=== PATIENT | female | born 1940 | race Caucasian/White ===

== ENCOUNTER → 2017-09-14 07:26 | Outpatient (REF) | payer MEDICARE, MEDICAID, SELFPAY ==
[2017-09-14 08:40] LABS: Hematocrit 34.6 % (37-47); Mean Corp Hgb Conc 31.8 g/gl (32-36); Mean Corpuscular Hgb 30.9 pg (27.0-32.0); Mean Corpuscular Volume 97.2 fL (81-99); Platelet Count 242 K/mm3 (150-450); RBC Distribution Width CV 14.2 % (11.6-14.6); RBC Distribution Width SD 47.8 fl (35.1-43.9); Red Blood Count 3.56 M/mm3 (4.2-5.4); White Blood Count 9.7 K/mm3 (4.4-11.0)
[2017-09-14 08:46] LABS: Scan Indicated on CBC? Y/N NO
[2017-09-14 09:03] LABS: Anion Gap 7 (5-15); BUN 23 mg/dL (7-18); BUN/Creat Ratio 27.3 RATIO (10-20); Calcium,Total 8.5 mg/dL (8.5-10.1); Chloride 98 mmol/L (98-107); Creatinine, Serum 0.84 mg/dL (0.55-1.02); EST Glomerular Filtration Rate 69 mL/min (>60); Est Glom Filt Rate - Afr Amer 84 mL/min (>60); Glucose 69 mg/dL (70-110); Potassium 3.8 mmol/L (3.5-5.1); Sodium Level 140 mmol/L (136-145)
== END ==
LOC: OLS.WHLEAS 07:26
PROVIDERS: Visit Provider Family Medicine
DX: E11.9 Type 2 diabetes mellitus without complications (principal); I10 Essential (primary) hypertension; E03.9 Hypothyroidism, unspecified; J44.9 Chronic obstructive pulmonary disease, unspecified
CPT/HCPCS: 36415; 80048; 85027

== ENCOUNTER → 2017-10-26 07:00 | Outpatient (REF) | payer MEDICARE, MEDICAID, SELFPAY ==
[2017-10-26 09:14] LABS: Hematocrit 36.2 % (37-47); Hemoglobin 11.4 g/dl (12.0-15.0); Mean Corp Hgb Conc 31.5 g/gl (32-36); Mean Corpuscular Hgb 31.2 pg (27.0-32.0); Mean Corpuscular Volume 99.2 fL (81-99); Platelet Count 263 K/mm3 (150-450); RBC Distribution Width CV 14.4 % (11.6-14.6); RBC Distribution Width SD 51.9 fl (35.1-43.9); Red Blood Count 3.65 M/mm3 (4.2-5.4); Scan Indicated on CBC? Y/N NO; White Blood Count 9.5 K/mm3 (4.4-11.0)
[2017-10-26 09:23] LABS: Anion Gap 8 (5-15); BUN 22 mg/dL (7-18); BUN/Creat Ratio 24.7 RATIO (10-20); Calcium,Total 8.7 mg/dL (8.5-10.1); Chloride 98 mmol/L (98-107); Creatinine, Serum 0.89 mg/dL (0.55-1.02); EST Glomerular Filtration Rate 65 mL/min (>60); Est Glom Filt Rate - Afr Amer 79 mL/min (>60); Glucose 132 mg/dL (74-106); Potassium 3.7 mmol/L (3.5-5.1); Sodium Level 141 mmol/L (136-145)
== END ==
LOC: OLS.WHLEAS 07:00
PROVIDERS: Visit Provider Family Medicine
DX: E11.9 Type 2 diabetes mellitus without complications (principal); I10 Essential (primary) hypertension; J44.9 Chronic obstructive pulmonary disease, unspecified
CPT/HCPCS: 36415; 80048; 85027

== ENCOUNTER → 2018-01-02 05:00 | Outpatient (REF) | payer MEDICARE, MEDICAID, SELFPAY ==
[2018-01-02 08:01] LABS: Hematocrit 32.7 % (37-47); Hemoglobin 10.3 g/dl (12.0-15.0); Mean Corp Hgb Conc 31.5 g/gl (32-36); Mean Corpuscular Volume 98.5 fL (81-99); Platelet Count 204 K/mm3 (150-450); RBC Distribution Width CV 14.2 % (11.6-14.6); RBC Distribution Width SD 48.7 fl (35.1-43.9); Red Blood Count 3.32 M/mm3 (4.2-5.4); White Blood Count 9.9 K/mm3 (4.4-11.0)
[2018-01-02 08:06] LABS: Scan Indicated on CBC? Y/N NO
[2018-01-02 08:10] LABS: Anion Gap 6 (5-15); BUN 25 mg/dL (7-18); BUN/Creat Ratio 24.5 RATIO (10-20); Calcium,Total 8.3 mg/dL (8.5-10.1); Chloride 101 mmol/L (98-107); Cholesterol 136 mg/dL (200); Creatinine, Serum 1.02 mg/dL (0.55-1.02); EST Glomerular Filtration Rate 55 mL/min (>60); Est Glom Filt Rate - Afr Amer 67 mL/min (>60); Glucose 168 mg/dL (74-106); High Density Lipoprotein 54 mg/dL; Potassium 3.9 mmol/L (3.5-5.1); Sodium Level 142 mmol/L (136-145); Triglycerides 64 mg/dL; Very Low Density Lipoprotein 13 mg/dL (5-40)
== END ==
LOC: OLS.WHLEAS 05:00
PROVIDERS: Visit Provider Family Medicine
DX: E11.9 Type 2 diabetes mellitus without complications (principal); I10 Essential (primary) hypertension; E78.5 Hyperlipidemia, unspecified; J44.9 Chronic obstructive pulmonary disease, unspecified
CPT/HCPCS: 36415; 80048; 80061; 85027

== ENCOUNTER → 2018-01-23 05:00 | Outpatient (REF) | payer MEDICARE, MEDICAID, SELFPAY ==
[2018-01-23 08:33] LABS: AST(SGOT) 8 U/L (15-37); Alanine Aminotransfer ALT/SGPT 17 U/L (13-56); Albumin, Serum 3.2 g/dL (3.2-5.0); Alkaline Phosphatase 138 U/L (45-117); Anion Gap 6 (5-15); BUN 23 mg/dL (7-18); BUN/Creat Ratio 25.3 RATIO (10-20); Bilirubin, Direct 0.08 mg/dL (0.00-0.30); Calcium,Total 8.4 mg/dL (8.5-10.1); Chloride 101 mmol/L (98-107); Creatinine, Serum 0.91 mg/dL (0.55-1.02); EST Glomerular Filtration Rate 63 mL/min (>60); Est Glom Filt Rate - Afr Amer 77 mL/min (>60); Globulin 3.4 g/dL (2.2-4.2); Glucose 61 mg/dL (74-106); Potassium 3.7 mmol/L (3.5-5.1); Protein, Total 6.6 g/dL (6.4-8.2); Sodium Level 145 mmol/L (136-145)
[2018-01-23 08:50] LABS: Hemoglobin A1c 8.8 % (4.2-6.3)
== END ==
LOC: OLS.WHLEAS 05:00
PROVIDERS: Visit Provider Family Medicine
DX: R60.9 Edema, unspecified (principal)
CPT/HCPCS: 36415; 80048; 80076; 83036

== ENCOUNTER → 2018-03-01 05:00 | Outpatient (REF) | payer MEDICARE, SELFPAY ==
[2018-03-01 08:24] LABS: Hematocrit 33.9 % (37-47); Hemoglobin 10.6 g/dl (12.0-15.0); Mean Corp Hgb Conc 31.3 g/gl (32-36); Mean Corpuscular Hgb 30.5 pg (27.0-32.0); Mean Corpuscular Volume 97.4 fL (81-99); Mean Platelet Vol. 12.1 fl (6.2-12.0); Platelet Count 220 K/mm3 (150-450); RBC Distribution Width CV 14.1 % (11.6-14.6); RBC Distribution Width SD 50.3 fl (35.1-43.9); Red Blood Count 3.48 M/mm3 (4.2-5.4); White Blood Count 9.8 K/mm3 (4.4-11.0)
[2018-03-01 08:28] LABS: Scan Indicated on CBC? Y/N NO
[2018-03-01 08:29] LABS: Anion Gap 7 (5-15); BUN 24 mg/dL (7-18); BUN/Creat Ratio 25.8 RATIO (10-20); Calcium,Total 8.4 mg/dL (8.5-10.1); Chloride 101 mmol/L (98-107); Creatinine, Serum 0.93 mg/dL (0.55-1.02); EST Glomerular Filtration Rate 62 mL/min (>60); Est Glom Filt Rate - Afr Amer 75 mL/min (>60); Glucose 173 mg/dL (74-106); Potassium 3.8 mmol/L (3.5-5.1); Sodium Level 143 mmol/L (136-145)
== END ==
LOC: OLS.WHLEAS 05:00
PROVIDERS: Visit Provider Family Medicine
DX: E11.9 Type 2 diabetes mellitus without complications (principal); I10 Essential (primary) hypertension; E78.5 Hyperlipidemia, unspecified; M06.9 Rheumatoid arthritis, unspecified
CPT/HCPCS: 36415; 80048; 85027

== ENCOUNTER → 2018-04-30 05:00 | Outpatient (REF) | payer MEDICARE, SELFPAY ==
[2018-04-30 10:20] LABS: Hematocrit 33.6 % (37-47); Hemoglobin 10.7 g/dl (12.0-15.0); Mean Corp Hgb Conc 31.8 g/gl (32-36); Mean Corpuscular Hgb 31.7 pg (27.0-32.0); Mean Corpuscular Volume 99.4 fL (81-99); Mean Platelet Vol. 11.6 fl (6.2-12.0); Platelet Count 216 K/mm3 (150-450); RBC Distribution Width CV 14.2 % (11.6-14.6); RBC Distribution Width SD 49.2 fl (35.1-43.9); Red Blood Count 3.38 M/mm3 (4.2-5.4); White Blood Count 10.2 K/mm3 (4.4-11.0)
[2018-04-30 10:38] LABS: Scan Indicated on CBC? Y/N NO
[2018-04-30 11:01] LABS: Anion Gap 5 (5-15); BUN 23 mg/dL (7-18); Chloride 102 mmol/L (98-107); EST Glomerular Filtration Rate 57 mL/min (>60); Est Glom Filt Rate - Afr Amer 69 mL/min (>60); Glucose 180 mg/dL (74-106); Potassium 4.3 mmol/L (3.5-5.1); Sodium Level 141 mmol/L (136-145)
== END ==
LOC: OLS.WHLEAS 05:00
PROVIDERS: Visit Provider Family Medicine
DX: I10 Essential (primary) hypertension (principal); E11.9 Type 2 diabetes mellitus without complications; J44.9 Chronic obstructive pulmonary disease, unspecified
CPT/HCPCS: 36415; 80048; 85027

== ENCOUNTER 2018-06-27 02:20 | Emergency (ER) | payer MEDICARE, BC, MEDICAID, SELFPAY ==
[2018-06-27 02:21] VITALS: BP 149/72; PULSE 95; RESP 22; TEMP 36.7; O2SAT 92; BMI 77.4
[2018-06-27 02:24] VITALS: O2SAT 96
--- NOTE | 2018-06-27 02:58 | EKG12_ITS ---
Test Reason : SOB Blood Pressure : / mmHG Vent. Rate : 097 BPM Atrial Rate : 097 BPM P-R Int : 130 ms QRS Dur : 080 ms QT Int : 336 ms P-R-T Axes : 011 025 091 degrees QTc Int : 426 ms Normal sinus rhythm with sinus arrhythmia Nonspecific T wave abnormality Abnormal ECG Confirmed by ROXANE COHEN, NIDAI ([id number]), senior editor GEOFFREY SALGADO ([id number]) on 07/01/2018 3:45:53 PM Referred By: MR Confirmed By:NIDIA BETTS MD
--- NOTE | 2018-06-27 02:58 | RAD_ITS ---
STUDY: X-RAY CHEST REASON FOR EXAM: Female, 78 years old. Shortness of breath TECHNIQUE: 1 view COMPARISON: September 04, 2016 FINDINGS: There is a severe thoracic scoliosis with convexity to the right. There is cardiomegaly with heavy calcification of a tortuous aorta. There are chronic interstitial changes in the lungs with no acute pneumonia or failure and no pleural effusions. A right shoulder hemiarthroplasty. Normal visualized thoracic spine. Normal visualized ribs, clavicles, and shoulders. There is no demonstrated abnormality of the visualized soft tissue structures of the upper abdomen. RAD/Chest 1 View (Portable) IMPRESSION: Cardiomegaly. No acute findings in the lungs. Chronic interstitial changes bilaterally. Electronically Signed: Maurizio Maynard MD at 3:19 EDT Tel , Service support ,
[2018-06-27 03:02] VITALS: O2SAT 97
[2018-06-27 03:17] LABS: Absolute Lymphocyte Count 2.98 X10^3/ul (0.83-4.51); Absolute Neutrophil Count 5.4 X10^3/uL (2.0-7.7); Basophil# 0.01 X10^3/uL; Basophil% 0.1 % (0-1); Eosinophil# 0.13 X10^3/uL; Eosinophils% 1.4 % (0-5); Hematocrit 36.3 % (37-47); Hemoglobin 11.6 g/dl (12.0-15.0); Lymphocyte # 2.98 X10^3/ul (4.0); Lymphocyte % 31.6 % (19-41); Mean Corpuscular Hgb 30.9 pg (27.0-32.0); Mean Corpuscular Volume 96.8 fL (81-99); Mean Platelet Vol. 11.8 fl (6.2-12.0); Monocyte# 0.91 X10^3/uL; Monocyte% 9.7 % (0-10); Neutrophil # 5.37 X10^3/uL (2.7-7.7); Platelet Count 255 K/mm3 (150-450); RBC Distribution Width CV 14.8 % (11.6-14.6); Red Blood Count 3.75 M/mm3 (4.2-5.4); White Blood Count 9.4 K/mm3 (4.4-11.0)
[2018-06-27 03:21] LABS: Anion Gap 8 (5-15); BUN 25 mg/dL (7-18); BUN/Creat Ratio 22.3 RATIO (10-20); Calcium,Total 8.6 mg/dL (8.5-10.1); Chloride 98 mmol/L (98-107); Creatinine, Serum 1.12 mg/dL (0.55-1.02); EST Glomerular Filtration Rate 50 mL/min (>60); Est Glom Filt Rate - Afr Amer 60 mL/min (>60); Estimated Creatinine Clearance 31.69 ml/min; Glucose 242 mg/dL (74-106); Potassium 3.8 mmol/L (3.5-5.1); Sodium Level 140 mmol/L (136-145)
[2018-06-27 03:22] LABS: Differential Indicated SCAN CRITERIA MET; POSITIVE COUNT NO; POSITIVE DIFFERENTIAL NO; POSITIVE MORPHOLOGY YES
[2018-06-27 04:37] VITALS: BP 126/50; PULSE 89; RESP 17; O2SAT 98
--- NOTE | 2018-06-27 04:46 | ED.VISSUMM ---
- ER Visit Summary Date of Service: 06/27/18 Chief Complaint: Shortness of breath History of Present Illness: The patient is a 78 F presenting for evaluation secondary to an episode of shortness of breath. Patient reports that she suddenly became short of breath this evening. Paramedics were contacted, the patient was noted to be in the 80% range and her pulse ox. When paramedics placed the patient on her normal O2 settings, she immediately came up into the 90s and felt improvement. Patient states that this episode of shortness of breath was not associated with chest pain. It has not been associated with any sort of infectious signs or symptoms such as fever cough nausea or vomiting rash weakness or paresthesias. Patient states that she currently feels asymptomatic. She does have an underlying history of pulmonary hypertension COPD coronary disease diabetes hypertension and rheumatoid arthritis. Physical Examination: Vital signs notable for respiratory rate of 22 pulse ox 97% on 2-1/2 L. Well-nourished female no acute distress. Head normocephalic atraumatic. Moist mucous membranes. Neck supple. Heart was regular rate and rhythm, lungs sounds were clear to auscultation bilaterally with some minimal tachypnea but no respiratory distress or retractions. Abdomen soft and nontender. Peripheral edema +1 and symmetric in the lower extremities. Skin shows chronic changes consistent with patient's rheumatoid arthritis. Test Results: EKG demonstrates sinus rhythm 97 with nonspecific T wave changes that are consistent with patient's prior EKG and May 2016. Chest x-ray shows chronic changes per radiology and my personal review. CBC demonstrates some chronic anemia 11.6, chemistry unremarkable except for glucose 242, troponin found to be negative. Emergency Department Course and Treatment: Patient presented secondary to an episode of shortness of breath. She has no abnormal lung sounds, and does not appear to be in respiratory distress. A workup was obtained to check for pneumonia or cardiac etiology and was found to be negative. Patient remained asymptomatic and saturating normally. I do not believe that the patient requires admission at this time, this was not an episode of chest pain and seems like it could have potentially been that the patient was off of her oxygen or maybe it was an element of some paroxysmal nocturnal dyspnea. Regardless, I feel the patient safe and appropriate for discharge and she was sent back to the [facility] in stable condition. Disposition: Discharge Impression: 1. Dyspnea This note was generated with [employer] dictation software. It may contain incorrect words, spelling, and punctuation that were not noted in review of the chart prior to signing ED Disposition - Plan for ED Patient: Disposition: Home or Assisted Living Chief Complaint: Shortness of Breath Diagnosis: Dyspnea Instructions: ED Dyspnea Shortness of Breath Referrals: Jeremy Robles MD [Primary Care Provider] - 3-5 Days
--- NOTE | 2018-06-27 04:49 | ED.DCSUM_ITS ---
- ER Visit Summary Date of Service: 06/27/18 Chief Complaint: Shortness of breath History of Present Illness: The patient is a 78 F presenting for evaluation secondary to an episode of shortness of breath. Patient reports that she suddenly became short of breath this evening. Paramedics were contacted, the patient was noted to be in the 80% range and her pulse ox. When paramedics placed the patient on her normal O2 settings, she immediately came up into the 90s and felt improvement. Patient states that this episode of shortness of breath was not associated with chest pain. It has not been associated with any sort of infectious signs or symptoms such as fever cough nausea or vomiting rash weakness or paresthesias. Patient states that she currently feels asymptomatic. She does have an underlying history of pulmonary hypertension COPD coronary disease diabetes hypertension and rheumatoid arthritis. Physical Examination: Vital signs notable for respiratory rate of 22 pulse ox 97% on 2-1/2 L. Well-nourished female no acute distress. Head normocephalic atraumatic. Moist mucous membranes. Neck supple. Heart was regular rate and rhythm, lungs sounds were clear to auscultation bilaterally with some minimal tachypnea but no respiratory distress or retractions. Abdomen soft and nontender. Peripheral edema +1 and symmetric in the lower extremities. Skin shows chronic changes consistent with patient's rheumatoid arthritis. Test Results: EKG demonstrates sinus rhythm 97 with nonspecific T wave changes that are consistent with patient's prior EKG and May 2016. Chest x-ray shows chronic changes per radiology and my personal review. CBC demonstrates some chronic anemia 11.6, chemistry unremarkable except for glucose 242, troponin found to be negative. Emergency Department Course and Treatment: Patient presented secondary to an episode of shortness of breath. She has no abnormal lung sounds, and does not appear to be in respiratory distress. A workup was obtained to check for pne umonia or cardiac etiology and was found to be negative. Patient remained asymptomatic and saturating normally. I do not believe that the patient requires admission at this time, this was not an episode of chest pain and seems like it could have potentially been that the patient was off of her oxygen or maybe it was an element of some paroxysmal nocturnal dyspnea. Regardless, I feel the patient safe and appropriate for discharge and she was sent back to the intermediate in stable condition. Disposition: Discharge Impression: 1. Dyspnea This note was generated with [employer] 2000 dictation software. It may contain incorrect words, spelling, and punctuation that were not noted in review of the chart prior to signing ED Disposition - Plan for ED Patient: Disposition: Home or Assisted Living Chief Complaint: Shortness of Breath Diagnosis: Dyspnea Instructions: ED Dyspnea Shortness of Breath Referrals: Jeremy Robles MD [Primary Care Provider] - 3-5 Days
[2018-06-27 04:57] VITALS: BP 126/50; PULSE 90; RESP 20; O2SAT 98
[2018-06-27 11:01] LABS: Bedside Glucose 267 mg/dL (70-110)
== END 2018-06-27 05:45 | disposition home or self-care (01) ==
PROVIDERS: Emergency Provider Emergency Medicine; Family Provider Family Medicine; PCP Family Medicine
DX: R06.02 Shortness of breath (principal); I25.10 Atherosclerotic heart disease of native coronary artery without angina pectoris; I10 Essential (primary) hypertension; I27.20 Pulmonary hypertension, unspecified; E11.9 Type 2 diabetes mellitus without complications; J44.9 Chronic obstructive pulmonary disease, unspecified; M06.9 Rheumatoid arthritis, unspecified; Z79.4 Long term (current) use of insulin; Z79.01 Long term (current) use of anticoagulants; Z79.899 Other long term (current) drug therapy
CPT/HCPCS: 71045; 80048; 82962; 84484; 85025; 93005; 99285; A4216

== ENCOUNTER → 2018-07-01 04:00 | Outpatient (REF) | payer MEDICARE, BC, MEDICAID, SELFPAY ==
[2018-07-01 08:57] LABS: Hematocrit 33.6 % (37-47); Hemoglobin 10.3 g/dl (12.0-15.0); Mean Corp Hgb Conc 30.7 g/gl (32-36); Mean Corpuscular Hgb 30.5 pg (27.0-32.0); Mean Corpuscular Volume 99.4 fL (81-99); Mean Platelet Vol. 11.6 fl (6.2-12.0); Platelet Count 250 K/mm3 (150-450); RBC Distribution Width CV 14.9 % (11.6-14.6); RBC Distribution Width SD 53.4 fl (35.1-43.9); Red Blood Count 3.38 M/mm3 (4.2-5.4); White Blood Count 9.4 K/mm3 (4.4-11.0)
[2018-07-01 08:58] LABS: Scan Indicated on CBC? Y/N NO
[2018-07-01 09:10] LABS: Anion Gap 6 (5-15); BUN 32 mg/dL (7-18); BUN/Creat Ratio 27.4 RATIO (10-20); Calcium,Total 8.6 mg/dL (8.5-10.1); Chloride 103 mmol/L (98-107); Creatinine, Serum 1.17 mg/dL (0.55-1.02); EST Glomerular Filtration Rate 47 mL/min (>60); Est Glom Filt Rate - Afr Amer 57 mL/min (>60); Glucose 46 mg/dL (74-106); Potassium 4.5 mmol/L (3.5-5.1); Sodium Level 145 mmol/L (136-145)
== END ==
LOC: OLS.WHLEAS 04:00
PROVIDERS: Visit Provider Family Medicine
DX: J44.9 Chronic obstructive pulmonary disease, unspecified (principal); E11.9 Type 2 diabetes mellitus without complications; I10 Essential (primary) hypertension
CPT/HCPCS: 36415; 80048; 85027

== ENCOUNTER → 2018-07-23 05:00 | Outpatient (REF) | payer MEDICARE, BC, MEDICAID, SELFPAY ==
[2018-07-23 09:10] LABS: Hemoglobin A1c 8.9 % (4.2-6.3)
[2018-07-23 09:19] LABS: AST(SGOT) 10 U/L (15-37); Alanine Aminotransfer ALT/SGPT 16 U/L (13-56); Albumin, Serum 2.9 g/dL (3.2-5.0); Alkaline Phosphatase 129 U/L (45-117); Bilirubin, Direct 0.07 mg/dL (0.00-0.30); Globulin 3.1 g/dL (2.2-4.2)
== END ==
LOC: OLS.WHLEAS 05:00
PROVIDERS: Visit Provider Family Medicine
DX: I10 Essential (primary) hypertension (principal); F03.90 Unspecified dementia, unspecified severity, without behavioral disturbance, psychotic disturbance, mood disturbance, and anxiety; E11.9 Type 2 diabetes mellitus without complications; E78.5 Hyperlipidemia, unspecified; M62.81 Muscle weakness (generalized); G30.9 Alzheimer's disease, unspecified; F33.9 Major depressive disorder, recurrent, unspecified; M06.9 Rheumatoid arthritis, unspecified
CPT/HCPCS: 36415; 80076; 83036

== ENCOUNTER → 2018-08-20 07:45 | Outpatient (REF) | payer MEDICARE, BC, MEDICAID, SELFPAY ==
[2018-08-20 09:44] LABS: Hematocrit 33.9 % (37-47); Hemoglobin 10.6 g/dl (12.0-15.0); Mean Corp Hgb Conc 31.3 g/gl (32-36); Mean Corpuscular Hgb 31.3 pg (27.0-32.0); Mean Platelet Vol. 11.6 fl (6.2-12.0); Platelet Count 246 K/mm3 (150-450); RBC Distribution Width CV 14.7 % (11.6-14.6); RBC Distribution Width SD 51.4 fl (35.1-43.9); Red Blood Count 3.39 M/mm3 (4.2-5.4); White Blood Count 10.4 K/mm3 (4.4-11.0)
[2018-08-20 09:45] LABS: Scan Indicated on CBC? Y/N NO
[2018-08-20 09:50] LABS: Anion Gap 7 (5-15); BUN 19 mg/dL (7-18); Calcium,Total 8.8 mg/dL (8.5-10.1); Chloride 99 mmol/L (98-107); EST Glomerular Filtration Rate 57 mL/min (>60); Est Glom Filt Rate - Afr Amer 69 mL/min (>60); Glucose 70 mg/dL (74-106); Potassium 4.5 mmol/L (3.5-5.1); Sodium Level 143 mmol/L (136-145)
== END ==
LOC: OLS.WHLEAS 07:45
PROVIDERS: Visit Provider Family Medicine
DX: E11.9 Type 2 diabetes mellitus without complications (principal); F03.90 Unspecified dementia, unspecified severity, without behavioral disturbance, psychotic disturbance, mood disturbance, and anxiety; I10 Essential (primary) hypertension; E78.5 Hyperlipidemia, unspecified
CPT/HCPCS: 36415; 80048; 85027

== ENCOUNTER → 2018-10-22 05:57 | Outpatient (REF) | payer MEDICARE, BC, MEDICAID, SELFPAY ==
[2018-10-22 07:06] LABS: Hematocrit 31.4 % (37-47); Hemoglobin 9.8 g/dl (12.0-15.0); Mean Corp Hgb Conc 31.2 g/gl (32-36); Mean Corpuscular Hgb 30.5 pg (27.0-32.0); Mean Corpuscular Volume 97.8 fL (81-99); Mean Platelet Vol. 11.6 fl (6.2-12.0); Platelet Count 221 K/mm3 (150-450); RBC Distribution Width CV 14.4 % (11.6-14.6); RBC Distribution Width SD 51.3 fl (35.1-43.9); Red Blood Count 3.21 M/mm3 (4.2-5.4); White Blood Count 7.6 K/mm3 (4.4-11.0)
[2018-10-22 07:10] LABS: Scan Indicated on CBC? Y/N NO
[2018-10-22 07:11] LABS: Anion Gap 5 (5-15); BUN 25 mg/dL (7-18); BUN/Creat Ratio 22.7 RATIO (10-20); Calcium,Total 8.3 mg/dL (8.5-10.1); Chloride 100 mmol/L (98-107); EST Glomerular Filtration Rate 51 mL/min (>60); Est Glom Filt Rate - Afr Amer 61 mL/min (>60); Glucose 98 mg/dL (74-106); Potassium 3.4 mmol/L (3.5-5.1); Sodium Level 139 mmol/L (136-145)
== END ==
LOC: OLS.WHLEAS 05:57
PROVIDERS: Visit Provider Family Medicine
DX: E11.9 Type 2 diabetes mellitus without complications (principal); I10 Essential (primary) hypertension; E78.5 Hyperlipidemia, unspecified; M06.9 Rheumatoid arthritis, unspecified; F33.9 Major depressive disorder, recurrent, unspecified; G30.9 Alzheimer's disease, unspecified
CPT/HCPCS: 36415; 80048; 85027

== ENCOUNTER → 2018-11-18 04:00 | Outpatient (REF) | payer MEDICARE, BC, MEDICAID, SELFPAY ==
[2018-11-18 08:35] LABS: Hematocrit 34.6 % (37-47); Mean Corp Hgb Conc 31.8 g/gl (32-36); Mean Corpuscular Hgb 30.6 pg (27.0-32.0); Mean Corpuscular Volume 96.4 fL (81-99); Mean Platelet Vol. 11.9 fl (6.2-12.0); Platelet Count 191 K/mm3 (150-450); RBC Distribution Width SD 51.9 fl (35.1-43.9); Red Blood Count 3.59 M/mm3 (4.2-5.4); White Blood Count 6.9 K/mm3 (4.4-11.0)
[2018-11-18 08:46] LABS: Anion Gap 9 (5-15); BUN 52 mg/dL (7-18); BUN/Creat Ratio 32.1 RATIO (10-20); Calcium,Total 7.9 mg/dL (8.5-10.1); Chloride 101 mmol/L (98-107); Creatinine, Serum 1.62 mg/dL (0.55-1.02); EST Glomerular Filtration Rate 32 mL/min (>60); Est Glom Filt Rate - Afr Amer 39 mL/min (>60); Glucose 151 mg/dL (74-106); Potassium 4.4 mmol/L (3.5-5.1); Sodium Level 139 mmol/L (136-145)
[2018-11-18 08:49] LABS: Scan Indicated on CBC? Y/N NO
[2018-11-18 09:16] LABS: BNP,B-Type NATRIURETIC PEPTIDE 20.7 pg/mL (0-100)
== END ==
LOC: OLS.WHLEAS 04:00
PROVIDERS: Visit Provider Family Medicine
DX: J44.9 Chronic obstructive pulmonary disease, unspecified (principal)
CPT/HCPCS: 36415; 80048; 83880; 85027

== ENCOUNTER 2018-12-12 09:53 | Emergency (ER) | payer MEDICARE, BC, MEDICAID, SELFPAY ==
[2018-12-12 09:57] VITALS: BP 103/68; BP 106/51; PULSE 82; RESP 16; TEMP 36.8; O2SAT 96; BMI 29.2
[2018-12-12 10:21] LABS: Bedside Glucose 25 mg/dL (70-110)
[2018-12-12] MEDS: Dextrose 50%-Water 25 GM/50 ML DISP.SYRIN IV (10:22)
--- NOTE | 2018-12-12 10:40 | ED.VISSUMM ---
- ER Visit Summary Date of Service: 12/12/18 Chief Complaint: Low blood sugar History of Present Illness: The patient is a 78 F with low blood sugar at the [facility]. She was given oral glucose by [facility] as well as EMS. Last blood sugar for squad was 40. Patient was given orange juice on arrival to the ED. First blood sugar on check in the emergency room reveals a blood sugar of 25. She denies recent illness. She is on insulin for blood sugar control. Physical Examination: Vital signs unremarkable. Patient is lying in bed no acute distress. She is awake and answering questions. Heart is regular rate and rhythm. Lung sounds are clear. Abdomen is soft nontender. Test Results: CBC was white count 16.1 with 90% neutrophils. Hemoglobin is 10.0. Chemistry studies reveal glucose of 64, BUN 46, creatinine 1.73. Her renal function compares consistent with her prior. Urinalysis obtained via straight cath shows 0-5 white cells with 0-5 epithelials. Emergency Department Course and Treatment: Patient's initial blood sugar in the emergency room was 25. She was given 1 amp of D50. The next 3 blood sugars were 200, 207, and 190 over the period of an hour. One hour later blood sugars 135. She is given p.o. diet. At this time she is only tolerated a small portion of a cookie and some regular soda. Blood sugars are 113 and 117 in follow-up. Patient was given an additional dose of her normal oxycodone and respiratory viral panel was sent. I spoke with Dr. Robles. He will see her at the residential tomorrow. Toncassi's bedtime dose of insulin is to be given at only half her normal dose. Treatment Plan: [] Disposition: Discharge Impression: Hypoglycemia, improved This note was generated with [employer] dictation software. It may contain incorrect words, spelling, and punctuation that were not noted in review of the chart prior to signing ED Disposition - Plan for ED Patient: Referrals: Jeremy Robles MD [Primary Care Provider] -
[2018-12-12 10:48] LABS: Absolute Lymphocyte Count 0.76 X10^3/ul (0.83-4.51); Absolute Neutrophil Count 14.5 X10^3/uL (2.0-7.7); Eosinophil# 0.01 X10^3/uL; Eosinophils% 0.1 % (0-5); Hematocrit 31.4 % (37-47); Lymphocyte # 0.76 X10^3/ul (4.0); Lymphocyte % 4.7 % (19-41); Mean Corp Hgb Conc 31.8 g/gl (32-36); Mean Corpuscular Hgb 31.3 pg (27.0-32.0); Mean Corpuscular Volume 98.4 fL (81-99); Mean Platelet Vol. 11.2 fl (6.2-12.0); Monocyte# 0.79 X10^3/uL; Monocyte% 4.9 % (0-10); Neutrophil # 14.53 X10^3/uL (2.7-7.7); Neutrophil % 90.1 % (47-70); Platelet Count 239 K/mm3 (150-450); RBC Distribution Width CV 16.2 % (11.6-14.6); RBC Distribution Width SD 56.6 fl (35.1-43.9); Red Blood Count 3.19 M/mm3 (4.2-5.4); White Blood Count 16.1 K/mm3 (4.4-11.0)
[2018-12-12 10:49] LABS: POSITIVE COUNT NO; POSITIVE DIFFERENTIAL NO; POSITIVE MORPHOLOGY NO
[2018-12-12] MEDS: oxyCODONE CR 15 MG Tablet 30 MG PO (10:50)
[2018-12-12 10:51] LABS: Anion Gap 9 (5-15); BUN 46 mg/dL (7-18); BUN/Creat Ratio 26.6 RATIO (10-20); Calcium,Total 8.3 mg/dL (8.5-10.1); Chloride 100 mmol/L (98-107); Creatinine, Serum 1.73 mg/dL (0.55-1.02); EST Glomerular Filtration Rate 30 mL/min (>60); Est Glom Filt Rate - Afr Amer 36 mL/min (>60); Estimated Creatinine Clearance 18.63 ml/min; Glucose 64 mg/dL (74-106); Potassium 4.1 mmol/L (3.5-5.1); Sodium Level 142 mmol/L (136-145)
[2018-12-12 10:51] LABS: Bedside Glucose 200 mg/dL (70-110)
--- NOTE | 2018-12-12 11:16 | RAD_ITS ---
STUDY: X-RAY CHEST REASON FOR EXAM: Female, 78 years old. Shortness of breath. Hypoglycemia. TECHNIQUE: Single AP portable view of the chest. COMPARISON: Comparison is made with prior study dated June 27, 2018. FINDINGS: There is evidence of a mild degree of vascular congestion and mild increased markings in both lungs worse in the left lower lobe. There is blunting of both cost phrenic angles. There is moderate cardiac enlargement. Normal mediastinum and casper. Normal visualized pulmonary arteries. There is atherosclerotic calcification of the aortic arch with tortuosity. There is a dextroscoliosis of the thoracic spine. Status post right shoulder replacement. There is no demonstrated abnormality of the visualized soft tissue structures of the upper abdomen. RAD/Chest 1 View (Portable) IMPRESSION: Cardiomegaly and mild CHF with bibasilar atelectasis worse on the left side. Blunting of both costophrenic angles. Electronically Signed: Deion Wray, at 11:40 EDT , Service support ,
[2018-12-12 11:20] LABS: Bedside Glucose 207 mg/dL (70-110)
[2018-12-12 11:59] VITALS: BP 135/88; PULSE 97; RESP 25; O2SAT 96
[2018-12-12 12:06] LABS: Bedside Glucose 190 mg/dL (70-110)
[2018-12-12 13:02] LABS: Mucous, Urine 0 SEEN /hpf (<or=2+); Red Blood Cells-Urine 0 SEEN /hpf (0-5)
[2018-12-12 13:10] VITALS: BP 130/73; PULSE 94; RESP 25; O2SAT 93
[2018-12-12 13:10] LABS: Bedside Glucose 135 mg/dL (70-110)
[2018-12-12 13:21] LABS: Color, Urine Yellow (Yellow); Glucose, Dipstick Normal (Normal); Ketone-Dipstick 5 mg/dl (Negative); Leukocyte Esterase-Dipstick 25 /ul (Negative); Nitrite-Dipstick Negative (Negative); Occult Blood-Urine Negative /ul (Negative); Protein-Dipstick Negative (Negative); Specific Gravity, Urine 1.025 (1.002-1.030); Urine Bilirubin Dipstick Negative (Negative); Urine Clarity Sl. Cloudy (Clear); Urine Urobilinogen Normal (Normal)
[2018-12-12 13:35] LABS: Amorphous Sediment 2+; Bacteria 2+ /hpf (None Seen); Squamous Epithelial Cells - UA 0-5 SEEN /hpf (5-10); White Blood Cells 0-5 SEEN /hpf (0-5)
[2018-12-12 13:50] LABS: Bedside Glucose 113 mg/dL (70-110)
[2018-12-12] MEDS: oxyCODONE 5 MG Tablet PO (14:14)
[2018-12-12 14:20] LABS: Bedside Glucose 117 mg/dL (70-110)
--- NOTE | 2018-12-12 15:14 | DCINST.ED_ITS ---
ED Disposition - Plan for ED Patient: Disposition: Home or Assisted Living Instructions: ED Diabetes Hypoglycemia Insulin React Referrals: Jeremy Robles MD [Primary Care Provider] - Additional Instructions: After discussion with Dr Robles, patient is to be given only half her normal bedtime dose of insulin tonight. [facility].
[2018-12-12 15:30] LABS: Bedside Glucose 110 mg/dL (70-110)
--- NOTE | 2018-12-12 15:35 | NURSING ---
CALLED [facility], CHRISTI IS FROM [facility]
== END 2018-12-12 16:26 | disposition skilled nursing facility (03) ==
PROVIDERS: Emergency Provider Emergency Medicine; Family Provider Family Medicine; PCP Family Medicine
DX: E11.649 Type 2 diabetes mellitus with hypoglycemia without coma (principal); I10 Essential (primary) hypertension; F03.90 Unspecified dementia, unspecified severity, without behavioral disturbance, psychotic disturbance, mood disturbance, and anxiety; J44.9 Chronic obstructive pulmonary disease, unspecified; M06.9 Rheumatoid arthritis, unspecified; Z79.4 Long term (current) use of insulin; Z79.01 Long term (current) use of anticoagulants; Z79.899 Other long term (current) drug therapy; Z86.73 Personal history of transient ischemic attack (TIA), and cerebral infarction without residual deficits
CPT/HCPCS: 71045; 80048; 81001; 82962; 85025; 87633; 96374; 99285; P9612; A4216

== ENCOUNTER → 2018-12-24 05:00 | Outpatient (REF) | payer MEDICARE, BC, MEDICAID, SELFPAY ==
[2018-12-12 09:57] VITALS: BMI 29.2
[2018-12-24 07:51] LABS: Hematocrit 31.6 % (37-47); Hemoglobin 9.7 g/dl (12.0-15.0); Mean Corp Hgb Conc 30.7 g/gl (32-36); Mean Corpuscular Hgb 30.7 pg (27.0-32.0); Mean Platelet Vol. 11.6 fl (6.2-12.0); Platelet Count 232 K/mm3 (150-450); RBC Distribution Width CV 16.1 % (11.6-14.6); RBC Distribution Width SD 57.4 fl (35.1-43.9); Red Blood Count 3.16 M/mm3 (4.2-5.4); White Blood Count 10.5 K/mm3 (4.4-11.0)
[2018-12-24 08:02] LABS: Scan Indicated on CBC? Y/N NO
[2018-12-24 08:28] LABS: Anion Gap 5 (5-15); BUN 23 mg/dL (7-18); BUN/Creat Ratio 21.1 RATIO (10-20); Calcium,Total 8.1 mg/dL (8.5-10.1); Chloride 98 mmol/L (98-107); Cholesterol 134 mg/dL (200); Creatinine, Serum 1.09 mg/dL (0.55-1.02); EST Glomerular Filtration Rate 51 mL/min (>60); Est Glom Filt Rate - Afr Amer 62 mL/min (>60); Glucose 148 mg/dL (74-106); High Density Lipoprotein 48 mg/dL; Potassium 3.8 mmol/L (3.5-5.1); Sodium Level 140 mmol/L (136-145); Triglycerides 118 mg/dL; Very Low Density Lipoprotein 24 mg/dL (5-40)
== END ==
LOC: OLS.WHLEAS 05:00
PROVIDERS: Visit Provider Family Medicine
DX: I27.0 Primary pulmonary hypertension (principal); E78.5 Hyperlipidemia, unspecified
CPT/HCPCS: 36415; 80048; 80061; 85027

== ENCOUNTER → 2019-01-28 | Outpatient (REF) | payer MEDICARE, BC, MEDICAID, SELFPAY ==
[2019-01-28 08:23] LABS: AST(SGOT) 10 U/L (15-37); Alanine Aminotransfer ALT/SGPT 21 U/L (13-56); Albumin, Serum 2.8 g/dL (3.2-5.0); Alkaline Phosphatase 111 U/L (45-117); Bilirubin, Direct < 0.05 mg/dL (0.00-0.30); Globulin 3.1 g/dL (2.2-4.2); Protein, Total 5.9 g/dL (6.4-8.2)
== END | disposition home or self-care (01) ==
LOC: OLS.WHLEAS 05:00
PROVIDERS: Visit Provider Family Medicine
DX: J44.9 Chronic obstructive pulmonary disease, unspecified (principal); E11.9 Type 2 diabetes mellitus without complications; I10 Essential (primary) hypertension
CPT/HCPCS: 36415; 80076; 83036

== ENCOUNTER → 2019-02-24 | Outpatient (REF) | payer MEDICARE, OTHER, SELFPAY ==
[2019-02-24 07:54] LABS: Hematocrit 32.1 % (37-47); Hemoglobin 10.1 g/dl (12.0-15.0); Mean Corp Hgb Conc 31.5 g/gl (32-36); Mean Corpuscular Hgb 31.2 pg (27.0-32.0); Mean Corpuscular Volume 99.1 fL (81-99); Platelet Count 232 K/mm3 (150-450); Red Blood Count 3.24 M/mm3 (4.2-5.4)
[2019-02-24 07:58] LABS: Scan Indicated on CBC? Y/N NO
[2019-02-24 08:09] LABS: Hemoglobin A1c 8.5 % (4.2-6.3)
[2019-02-24 08:11] LABS: AST(SGOT) 12 U/L (15-37); Alanine Aminotransfer ALT/SGPT 13 U/L (13-56); Albumin, Serum 2.8 g/dL (3.2-5.0); Alkaline Phosphatase 117 U/L (45-117); Anion Gap 6 (5-15); BUN 21 mg/dL (7-18); BUN/Creat Ratio 21.5 RATIO (10-20); Bilirubin, Direct 0.09 mg/dL (0.00-0.30); Calcium,Total 8.5 mg/dL (8.5-10.1); Chloride 100 mmol/L (98-107); Creatinine, Serum 0.98 mg/dL (0.55-1.02); EST Glomerular Filtration Rate 58 mL/min (>60); Est Glom Filt Rate - Afr Amer 70 mL/min (>60); Globulin 3.1 g/dL (2.2-4.2); Glucose 115 mg/dL (74-106); Potassium 3.3 mmol/L (3.5-5.1); Protein, Total 5.9 g/dL (6.4-8.2); Sodium Level 141 mmol/L (136-145)
== END | disposition home or self-care (01) ==
LOC: OLS.WHLEAS 05:00
PROVIDERS: Visit Provider Family Medicine
DX: F03.90 Unspecified dementia, unspecified severity, without behavioral disturbance, psychotic disturbance, mood disturbance, and anxiety (principal); E11.9 Type 2 diabetes mellitus without complications; I10 Essential (primary) hypertension; E78.5 Hyperlipidemia, unspecified
CPT/HCPCS: 36415; 80048; 80076; 83036; 85027

== ENCOUNTER → 2019-05-26 05:00 | Outpatient (REF) | payer MEDICARE, OTHER, SELFPAY ==
[2019-05-26 07:28] LABS: Hematocrit 33.4 % (37-47); Hemoglobin 10.4 g/dL (12.0-15.0); Mean Corp Hgb Conc 31.1 g/dL (32-36); Mean Corpuscular Hgb 30.8 pg (27.0-32.0); Mean Corpuscular Volume 98.8 fL (81-99); Mean Platelet Vol. 12.8 fl (6.2-12.0); Platelet Count 227 K/mm3 (150-450); RBC Distribution Width CV 14.6 % (11.6-14.6); Red Blood Count 3.38 M/mm3 (4.2-5.4); White Blood Count 9.4 K/mm3 (4.4-11.0)
[2019-05-26 07:38] LABS: Anion Gap 6 (5-15); BUN 18 mg/dL (7-18); BUN/Creat Ratio 17.5 RATIO (10-20); Calcium,Total 8.6 mg/dL (8.5-10.1); Chloride 98 mmol/L (98-107); Creatinine, Serum 1.03 mg/dL (0.55-1.02); EST Glomerular Filtration Rate 55 mL/min (>60); Est Glom Filt Rate - Afr Amer 66 mL/min (>60); Glucose 146 mg/dL (74-106); Potassium 3.4 mmol/L (3.5-5.1); Sodium Level 142 mmol/L (136-145)
== END ==
LOC: OLS.WHLEAS 05:00
PROVIDERS: Visit Provider Family Medicine
DX: J96.10 Chronic respiratory failure, unspecified whether with hypoxia or hypercapnia (principal); J44.9 Chronic obstructive pulmonary disease, unspecified; I27.0 Primary pulmonary hypertension; E78.5 Hyperlipidemia, unspecified
CPT/HCPCS: 36415; 80048; 85027

== ENCOUNTER → 2019-05-29 05:00 | Outpatient (REF) | payer MEDICARE, BC, MEDICAID, SELFPAY ==
[2019-05-29 08:10] LABS: Potassium 3.8 mmol/L (3.5-5.1)
== END ==
LOC: OLS.WHLEAS 05:00
PROVIDERS: Visit Provider Family Medicine
DX: J96.10 Chronic respiratory failure, unspecified whether with hypoxia or hypercapnia (principal); J44.9 Chronic obstructive pulmonary disease, unspecified; I27.0 Primary pulmonary hypertension; E78.5 Hyperlipidemia, unspecified; E87.6 Hypokalemia
CPT/HCPCS: 36415; 84132

== ENCOUNTER → 2019-08-25 05:00 | Outpatient (REF) | payer MEDICARE, MEDICAID, SELFPAY ==
[2019-08-25 07:59] LABS: Hematocrit 33.2 % (37-47); Hemoglobin 10.5 g/dL (12.0-15.0); Mean Corp Hgb Conc 31.6 g/dL (32-36); Mean Corpuscular Hgb 30.7 pg (27.0-32.0); Mean Corpuscular Volume 97.1 fL (81-99); Mean Platelet Vol. 12.3 fl (6.2-12.0); Platelet Count 208 K/mm3 (150-450); RBC Distribution Width CV 13.4 % (11.6-14.6); RBC Distribution Width SD 47.4 fl (35.1-43.9); Red Blood Count 3.42 M/mm3 (4.2-5.4); White Blood Count 9.4 K/mm3 (4.4-11.0)
[2019-08-25 08:20] LABS: AST(SGOT) 9 U/L (15-37); Alanine Aminotransfer ALT/SGPT 13 U/L (13-56); Alkaline Phosphatase 192 U/L (45-117); Anion Gap 3 (5-15); BUN 22 mg/dL (7-18); BUN/Creat Ratio 19.5 RATIO (10-20); Bilirubin, Direct 0.05 mg/dL (0.00-0.30); Calcium,Total 8.3 mg/dL (8.5-10.1); Chloride 100 mmol/L (98-107); Creatinine, Serum 1.13 mg/dL (0.55-1.02); EST Glomerular Filtration Rate 49 mL/min (>60); Est Glom Filt Rate - Afr Amer 59 mL/min (>60); Globulin 3.2 g/dL (2.2-4.2); Glucose 155 mg/dL (74-106); Protein, Total 6.2 g/dL (6.4-8.2); Sodium Level 140 mmol/L (136-145)
[2019-08-25 08:40] LABS: Hemoglobin A1c 9.1 % (4.2-6.3)
== END ==
LOC: OLS.WHLEAS 05:00
PROVIDERS: Visit Provider Family Medicine
DX: J96.10 Chronic respiratory failure, unspecified whether with hypoxia or hypercapnia (principal); J44.9 Chronic obstructive pulmonary disease, unspecified; I27.0 Primary pulmonary hypertension; E78.5 Hyperlipidemia, unspecified; E11.65 Type 2 diabetes mellitus with hyperglycemia
CPT/HCPCS: 36415; 80048; 80076; 83036; 85027

== ENCOUNTER → 2019-11-24 05:00 | Outpatient (REF) | payer MEDICARE, MEDICAID, SELFPAY ==
[2019-11-24 07:56] LABS: Hematocrit 31.8 % (37-47); Mean Corp Hgb Conc 31.4 g/dL (32-36); Mean Corpuscular Hgb 31.2 pg (27.0-32.0); Mean Corpuscular Volume 99.1 fL (81-99); Mean Platelet Vol. 12.1 fl (6.2-12.0); Platelet Count 203 K/mm3 (150-450); RBC Distribution Width CV 14.1 % (11.6-14.6); RBC Distribution Width SD 50.5 fl (35.1-43.9); Red Blood Count 3.21 M/mm3 (4.2-5.4)
[2019-11-24 08:06] LABS: Anion Gap 4 (5-15); BUN 24 mg/dL (7-18); BUN/Creat Ratio 23.8 RATIO (10-20); Calcium,Total 8.5 mg/dL (8.5-10.1); Chloride 102 mmol/L (98-107); Creatinine, Serum 1.01 mg/dL (0.55-1.02); EST Glomerular Filtration Rate 56 mL/min (>60); Est Glom Filt Rate - Afr Amer 68 mL/min (>60); Glucose 81 mg/dL (74-106); Potassium 3.6 mmol/L (3.5-5.1); Sodium Level 142 mmol/L (136-145)
[2019-11-25 05:24] LABS: Cholesterol 170 mg/dL (200); High Density Lipoprotein 49 mg/dL; Triglycerides 113 mg/dL; Very Low Density Lipoprotein 23 mg/dL (5-40)
== END ==
LOC: OLS.WHLEAS 05:00
PROVIDERS: PCP Family Medicine; Visit Provider Family Medicine
DX: J96.10 Chronic respiratory failure, unspecified whether with hypoxia or hypercapnia (principal); J44.9 Chronic obstructive pulmonary disease, unspecified; I27.0 Primary pulmonary hypertension; E78.5 Hyperlipidemia, unspecified
CPT/HCPCS: 36415; 80048; 80061; 85027

== ENCOUNTER → 2020-02-23 05:00 | Outpatient (REF) | payer MEDICARE, MEDICAID, SELFPAY ==
[2020-02-23 08:49] LABS: Hematocrit 33.3 % (37-47); Hemoglobin 10.7 g/dL (12.0-15.0); Mean Corp Hgb Conc 32.1 g/dL (32-36); Mean Corpuscular Hgb 31.6 pg (27.0-32.0); Mean Corpuscular Volume 98.2 fL (81-99); Mean Platelet Vol. 12.7 fl (6.2-12.0); Platelet Count 217 K/mm3 (150-450); RBC Distribution Width CV 13.5 % (11.6-14.6); RBC Distribution Width SD 48.1 fl (35.1-43.9); Red Blood Count 3.39 M/mm3 (4.2-5.4); White Blood Count 9.3 K/mm3 (4.4-11.0)
[2020-02-23 08:59] LABS: Anion Gap 5 (5-15); BUN 35 mg/dL (7-18); BUN/Creat Ratio 28.2 RATIO (10-20); Calcium,Total 8.8 mg/dL (8.5-10.1); Chloride 101 mmol/L (98-107); Creatinine, Serum 1.24 mg/dL (0.55-1.02); EST Glomerular Filtration Rate 44 mL/min (>60); Est Glom Filt Rate - Afr Amer 53 mL/min (>60); Glucose 110 mg/dL (74-106); Potassium 3.8 mmol/L (3.5-5.1); Sodium Level 141 mmol/L (136-145)
[2020-02-23 11:12] LABS: AST(SGOT) 12 U/L (15-37); Alanine Aminotransfer ALT/SGPT 15 U/L (13-56); Albumin, Serum 3.1 g/dL (3.2-5.0); Alkaline Phosphatase 127 U/L (45-117); Bilirubin, Direct 0.14 mg/dL (0.00-0.30); Globulin 3.4 g/dL (2.2-4.2); Protein, Total 6.5 g/dL (6.4-8.2)
[2020-02-23 11:16] LABS: Hemoglobin A1c 7.1 % (3.8-5.6)
== END ==
LOC: OLS.WHLEAS 05:00
PROVIDERS: PCP Family Medicine; Visit Provider Family Medicine
DX: E11.51 Type 2 diabetes mellitus with diabetic peripheral angiopathy without gangrene (principal); J96.10 Chronic respiratory failure, unspecified whether with hypoxia or hypercapnia; J44.9 Chronic obstructive pulmonary disease, unspecified; I10 Essential (primary) hypertension; E78.5 Hyperlipidemia, unspecified
CPT/HCPCS: 36415; 80048; 80076; 83036; 85027

== ENCOUNTER 2020-08-28 11:22 | Inpatient (IN) | payer MEDICARE, MEDICAID, SELFPAY ==
[2020-08-28] VITALS (53 sets, daily range): BP systolic 36–190; BP diastolic 19–115; PULSE 77–180; RESP 10–29; TEMP 3–38.9; O2SAT 88–100; BMI 24.0; BMI 25.5; BMI 67.6
--- NOTE | 2020-08-28 11:31 | EKG12_ITS ---
Test Reason : REPEAT Blood Pressure : / mmHG Vent. Rate : 177 BPM Atrial Rate : 133 BPM P-R Int : 000 ms QRS Dur : 068 ms QT Int : 276 ms P-R-T Axes : 000 053 087 degrees QTc Int : 473 ms Atrial Fibrillation with RVR Confirmed by MADINA COHEN, ELAN ([id number]), general expeditor CAROLYN DIAZ ([id number]) on 09/01/2020 9:29:43 AM Referred By: MEL Confirmed By:ELAN PAINTER MD
[2020-08-28] MEDS: Etomidate 20 MG/10 ML Vial IV (11:39)
[2020-08-28] MEDS: Succinylcholine Chloride 200 MG/10 ML Vial 70 MG IV (11:39)
[2020-08-28 11:51] LABS: Absolute Lymphocyte Count 0.97 X10^3/uL (0.83-4.51); Absolute Neutrophil Count 9.9 X10^3/uL (2.0-7.7); Basophil# 0.04 X10^3/uL; Basophil% 0.3 % (0-1); Eosinophil# 0.01 X10^3/uL; Eosinophils% 0.1 % (0-5); Hematocrit 42.6 % (37-47); Lymphocyte # 0.97 X10^3/ul (4.0); Lymphocyte % 8.4 % (19-41); Mean Corp Hgb Conc 30.5 g/dL (32-36); Mean Corpuscular Hgb 31.3 pg (27.0-32.0); Mean Corpuscular Volume 102.4 fL (81-99); Mean Platelet Vol. 11.4 fl (6.2-12.0); Monocyte# 0.51 X10^3/uL; Monocyte% 4.4 % (0-10); NRBC Flagged by Analyzer 0 % (0-5); Neutrophil # 9.85 X10^3/uL (2.7-7.7); Neutrophil % 85.8 % (47-70); Platelet Count 404 K/mm3 (150-450); RBC Distribution Width CV 14.2 % (11.6-14.6); RBC Distribution Width SD 53.5 fl (35.1-43.9); Red Blood Count 4.16 M/mm3 (4.2-5.4); White Blood Count 11.5 K/mm3 (4.4-11.0)
[2020-08-28 12:00] LABS: Fibrinogen 688 mg/dl (203-444)
[2020-08-28] MEDS: Midazolam 5 MG/ML Syringe IV (12:12)
--- NOTE | 2020-08-28 12:15 | RAD_ITS ---
STUDY: X-RAY CHEST REASON FOR EXAM: Female, 80 years old. ET TUBE PLACEMENT TECHNIQUE: Single AP portable view of the chest. COMPARISON: 12/12/2018 FINDINGS: Interval placement of endotracheal tube with the tip approximately 3 cm above the keshia. Interval placement of nasogastric tube with the tip below the diaphragm. Interval placement of right internal jugular deep venous line with tip the catheter overlying the superior vena cava and no pneumothorax. There is hyperinflation of the lungs consistent with chronic obstructive lung disease (COPD). Focal alveolar opacity in mid left lung consistent with pneumonia. There is no demonstrated pleural abnormality. Normal size heart. Normal mediastinum and casper. Normal visualized pulmonary arteries. Normal visualized aortic arch and descending thoracic aorta. There is a dextroscoliosis of the thoracic spine. Status post right shoulder hemiarthroplasty. There is no demonstrated abnormality of the visualized soft tissue structures of the upper abdomen. RAD/Chest 1 View (Portable) IMPRESSION: 1. Interval placement of endotracheal tube with the tip approximately 3 cm above the keshia. 2. Interval placement of nasogastric tube with the tip below the diaphragm. 3. Interval placement of right internal jugular deep venous line with tip of the catheter overlying the superior vena cava and no pneumothorax. 4. Emphysema with left lung pneumonia. Electronically Signed: Flash Dominguez MD at 12:51 EST Tel , Service support ,
--- NOTE | 2020-08-28 12:15 | RAD_ITS ---
STUDY: X-RAY - ABDOMEN/PELVIS REASON FOR EXAM: Female, 80 years old. og placement TECHNIQUE: Single AP view of the abdomen / pelvis. COMPARISON: None. FINDINGS: Nasogastric tube with the tip in the middle the upper abdomen likely in the stomach. There is an unremarkable bowel gas pattern. The visualized liver, spleen and kidneys are grossly normal in size and morphology. Normal soft tissue structures. Normal visualized osseous structures. RAD/Abdomen Single View (Portable) IMPRESSION: Nasogastric tube in the upper abdomen likely in the stomach. Electronically Signed: Flash Dominguez MD at 12:51 EST Tel , Service support ,
[2020-08-28] MEDS: 0.9% Normal Saline 1,000 ML 999 ML IV ×2 (12:32→13:42)
[2020-08-28] MEDS: Acetaminophen 650 MG Suppository RECTAL (12:40)
[2020-08-28 12:46] LABS: Lactic Acid 1.6 mmol/L (0.4-1.9)
[2020-08-28 12:51] LABS: ALB/GLOB Ratio 0.6 RATIO (0.9-2.4); AST(SGOT) 24 U/L (15-37); Alanine Aminotransfer ALT/SGPT 19 U/L (13-56); Albumin, Serum 2.4 g/dL (3.2-5.0); Alkaline Phosphatase 84 U/L (45-117); Anion Gap 2 (5-15); BUN 78 mg/dL (7-18); BUN/Creat Ratio 33.9 RATIO (10-20); CPK Total, Creatine Kinase 125 U/L (26-192); Calcium,Total 8.6 mg/dL (8.5-10.1); Chloride 105 mmol/L (98-107); EST Glomerular Filtration Rate 22 mL/min (>60); Est Glom Filt Rate - Afr Amer 26 mL/min (>60); Estimated Creatinine Clearance 17.65 ml/min; Globulin 4.3 g/dL (2.2-4.2); Glucose 187 mg/dL (74-106); LDH 302 U/L (84-246); Potassium 6.8 mmol/L (3.5-5.1); Protein, Total 6.7 g/dL (6.4-8.2); Sodium Level 143 mmol/L (136-145)
[2020-08-28] MEDS: Propofol 10MG/Ml 1,000 MG/100 ML Bottle 4.1 MG CONT INF (12:53)
--- NOTE | 2020-08-28 13:07 | ED.DCSUM_ITS ---
History of Present Illness Chief Complaint: Shortness of Breath Informant: Family, Communications Department Chairperson, SN[facility] Narrative: 80-year-old female from [place] presents with respiratory failure. Patient recently tested positive for Covid 19. group home report was that the patient was now requiring supplemental oxygen. Upon arrival to the emergency department the patient is in respiratory failure with agonal respirations. Is reported to me that she has a history of rheumatoid arthritis and mild dementia. Reportedly she is on methotrexate and until yesterday on prednisone. Daughter states that they changed her from prednisone to another steroids that she has not sure of Toni Ramirez DO, MS, FACEP. She also has a history of diabetes. She has also carries a history of COPD - Past Medical History (1) Pulmonary HTN Status: Chronic (2) Osteoporosis Status: Chronic (3) Type II diabetes mellitus, uncontrolled Status: Chronic (4) CAD (coronary artery disease) Status: Chronic (5) Chronic pain syndrome Status: Chronic (6) Chronic respiratory failure Status: Chronic (7) Diastolic dysfunction Status: Chronic (8) Left ventricular hypertrophy Status: Chronic (9) COPD (chronic obstructive pulmonary disease) Status: Chronic (10) Transient cerebral ischemia Status: Chronic (11) Rheumatoid arthritis Status: Chronic (12) Benign essential HTN Status: Chronic Past Medical History - Allergies and Home Meds Allergies/Adverse Reactions: Allergies aspirin Allergy (Verified 10/10/15 20:45) Hives Penicillins Allergy (Verified 10/10/15 20:45) Hives Sulfa (Sulfonamide Antibiotics) Allergy (Verified 10/10/15 20:45) Hives Prior records reviewed: Yes Surgical History: noncontributory Lives: [facility] Smoking Status: Unknown if ever smoked Drugs: None - Family History Maternal Family History: Reports: No pertinent history Paternal Family History: Reports: No pertinent history Review of Systems ROS: Unable to Obtain Physical Exam Vital Signs/Narrative: Vital Signs Temp Pulse Resp BP Pulse Ox 08/28/20 12:58 98.5 F 08/28/20 12:47 99.8 F H 82 12 145/80 H 100 08/28/20 12:42 100.5 F H 79 12 58/38 L 100 08/28/20 12:36 100.2 F H 89 12 48/26 L 08/28/20 12:28 100.4 F H 81 12 71/43 L 95 08/28/20 12:00 97.8 F 83 15 114/50 L 08/28/20 11:55 125 H 100 08/28/20 11:42 119 H 16 100 08/28/20 11:29 97.4 F L 101 H 10 L 153/63 H 100 08/28/20 11:22 97.4 F L 101 H 10 L 153/63 H 100 Inital Vital Signs reviewed: Yes General: Well nourished, Well developed, Obese Head: Normocephalic, Atraumatic Eyes: Perrl - Pupils 3 mm to 2 mm bilaterally. Negative for: Pale conjunctiva ENT: Moist mucous membranes, No rhinorrhea, - - Patient is not clearing her oral secretions. Neck: Supple, Nontender Cardiovascular: Regular rate, No murmurs, Tachycardia Respiratory: Chest nontender, Rhonchi, - - Agonal respirations Abdomen: Soft, Nondistended, Normal bowel sounds Extremities: Nontender, No edema Skin: Normal color, No rash Neurological: - - Patient's eyes are open but she is not communicating or following directions. Diagnostic/Tx/Re-eval Clinical Impression(s) from Imaging Studies Chest X-Ray 08/28/20 12:15 IMPRESSION: 1. Interval placement of endotracheal tube with the tip approximately 3 cm above the keshia. 2. Interval placement of nasogastric tube with the tip below the diaphragm. 3. Interval placement of right internal jugular deep venous line with tip of the catheter overlying the superior vena cava and no pneumothorax. 4. Emphysema with left lung pneumonia. Electronically Signed: Flash Dominguez MD at 12:51 EST Tel , Service support , KUB X-Ray 08/28/20 12:15 IMPRESSION: Nasogastric tube in the upper abdomen likely in the stomach. Electronically Signed: Flash Dominguez MD at 12:51 EST Tel , Service support , Laboratory Last Values WBC 11.5 K/mm3 (4.4-11.0) H 08/28/20 11:37 RBC 4.16 M/mm3 (4.2-5.4) L 08/28/20 11:37 Hgb 13.0 g/dL (12.0-15.0) 08/28/20 11:37 Hct 42.6 % (37-47) 08/28/20 11:37 MCV 102.4 fL (81-99) H 08/28/20 11:37 MCH 31.3 pg (27.0-32.0) 08/28/20 11:37 MCHC 30.5 g/dL (32-36) L 08/28/20 11:37 RDW Std Deviation 53.5 fl (35.1-43.9) H 08/28/20 11:37 RDW Coeff of Nayana 14.2 % (11.6-14.6) 08/28/20 11:37 Plt Count 404 K/mm3 (150-450) 08/28/20 11:37 MPV 11.4 fl (6.2-12.0) 08/28/20 11:37 Immature Gran % (Auto) 1.000 % (0.0-0.9) H 08/28/20 11:37 Neut % (Auto) 85.8 % (47-70) H 08/28/20 11:37 Lymph % (Auto) 8.4 % (19-41) L 08/28/20 11:37 Martin % (Auto) 4.4 % (0-10) 08/28/20 11:37 Eos % (Auto) 0.1 % (0-5) 08/28/20 11:37 Baso % (Auto) 0.3 % (0-1) 08/28/20 11:37 Absolute Neuts (auto) 9.9 X10^3/uL (2.0-7.7) H 08/28/20 11:37 Absolute Lymphs (auto) 0.97 X10^3/uL (0.83-4.51) 08/28/20 11:37 Nucleated RBC % 0 % (0-5) 08/28/20 11:37 Fibrinogen 688 mg/dl (203-444) H 08/28/20 11:37 Sodium 143 mmol/L (136-145) 08/28/20 12:05 Potassium 6.8 mmol/L (3.5-5.1) H* 08/28/20 12:05 Chloride 105 mmol/L (98-107) 08/28/20 12:05 Carbon Dioxide 36.0 mmol/L (21.0-32.0) H 08/28/20 12:05 Anion Gap 2 (5-15) L 08/28/20 12:05 BUN 78 mg/dL (7-18) H 08/28/20 12:05 Creatinine 2.30 mg/dL (0.55-1.02) H 08/28/20 12:05 Estim Creat Clear Calc 17.65 ml/min 08/28/20 12:05 Est GFR (MDRD) Af Amer 26 mL/min (>60) L 08/28/20 12:05 Est GFR (MDRD) Non-Af 22 mL/min (>60) L 08/28/20 12:05 BUN/Creatinine Ratio 33.9 RATIO (10-20) H 08/28/20 12:05 Glucose 187 mg/dL (74-106) H 08/28/20 12:05 Lactic Acid 1.6 mmol/L (0.4-1.9) 08/28/20 12:05 Calcium 8.6 mg/dL (8.5-10.1) 08/28/20 12:05 Total Bilirubin 0.30 mg/dL (0.20-1.00) 08/28/20 12:05 AST 24 U/L (15-37) 08/28/20 12:05 ALT 19 U/L (13-56) 08/28/20 12:05 Alkaline Phosphatase 84 U/L (45-117) 08/28/20 12:05 Lactate Dehydrogenase 302 U/L (84-246) H 08/28/20 12:05 Total Creatine Kinase 125 U/L (26-192) 08/28/20 12:05 Troponin I 0.185 ng/mL (<0.045) H 08/28/20 12:05 C-React Prot Ext Range 163.00 mg/L (0.0-3.0) H 08/28/20 12:05 B-Natriuretic Peptide Cancelled 08/28/20 11:37 Total Protein 6.7 g/dL (6.4-8.2) 08/28/20 12:05 Albumin 2.4 g/dL (3.2-5.0) L 08/28/20 12:05 Globulin 4.3 g/dL (2.2-4.2) H 08/28/20 12:05 Albumin/Globulin Ratio 0.6 RATIO (0.9-2.4) L 08/28/20 12:05 Procalcitonin Cancelled 08/28/20 11:37 - EKG Initial EKG Interpretation: Sinus Rhythm - EKG demonstrates a normal sinus rhythm at a rate of 99. There are no features of ACS or ectopy. Noted elevated T waves. - Medical Decision Making After initial evaluation of the patient and while staff were preparing for resuscitation , I called the daughter. She states that the patient is a full code. And wants everything done. Patient had EKG performed during this conversation that showed a normal sinus rhythm at a rate of 99. The patient T waves appear elevated compared to prior. Patient underwent RSI and 8-0 endotracheal tube was placed without any difficulty. Secured at 22 cm. Placement confirmed with capnography, auscultation, and later chest radiograph. The patient's blood pressure was in the 50 systolic range. Nurses were having a difficult time getting adequate venous access. Therefore decision to place a right IJ was made. Patient was prepped and draped in the usual sterile manner. Her neck shows limited mobility. Ultrasound was used to visualize the internal jugular. The nurses were unable to feel a pulse. Patient had a few seconds of CPR perfor med until I could get the ultrasound on to visualize the heart. Areas cardiac motion. I think the patient's blood pressure was substantially low that they could not feel a pulse. I then proceeded to the begin the central line placement. The first attempt at placement of the line I was unable to pass the guidewire most likely due to the angle of the needle due to the neck mobility. The needle was removed and the patient was readjusted. Second attempt I was able to feed the guidewire using the modified Seldinger technique the rest of the placement was performed successfully. Dark red nonpulsatile blood was obtained. Lines were flushed and the central line was secured with suture. Orogastric tube was placed. My interpretation of the plain films shows adequate placement of the tracheal and orogastric tubes as well as the central line. Concern for left infiltrate. Patient was given Versed for sedation and later placed on a propofol drip. She required Levophed for pressure support. I spoke with our grease cup filler and we are going to place her on a heparin drip. The procalcitonin machine was down later came back up this shows an elevated level. Due to the high probability of aspiration I gave her Levaquin and Flagyl due to her allergies. The patient will be mated into the ICU. While waiting bed assignment and transfer to the ICU the patient went into atrial fibrillation. This appears to be a new diagnosis for her. An EKG was obtained. This demonstrated atrial fibrillation at a rate of 177. Patient received a dose of Cardizem. We will see how she does and make a determination of a Cardizem drip versus amiodarone at that point. Hospitalist was updated. - Critical Care Time Critical care time (excluding procedures): 30-74 minutes - 35 minutes ED Disposition - Plan for ED Patient: Disposition: Acute Care Hospital [facility] Diagnosis: COVID-19, Respiratory failure, Hyperkalemia, Septic shock, Elevated troponin, New onset atrial fibrillation
--- NOTE | 2020-08-28 13:10 | ED.RN ---
per dr gibson, stop levophed.
--- NOTE | 2020-08-28 13:16 | ED.RN ---
levophed restarted, provider aware.
[2020-08-28 13:18] LABS: BNP,B-Type NATRIURETIC PEPTIDE 73.2 pg/mL (0-100)
[2020-08-28 13:20] LABS: Allen Test Positive; Base Excess 7 mmol/L (-2 to +2); Bicarbonate 31.7 mmol/L (22-26); Blood Gas Specimen Type ART; FI02 75; Mode AC; O2 Delivery Device Adult Vent; PEEP 5; PO2 248 mmHG (75-100); RR 12; SITE R Brach; SO2 100 % (95-99); Total Carbon Dioxide 33 mmol/L; Vt 450; pCO2 50.3 mmHg (35-45); pH 7.41 (7.35-7.45)
[2020-08-28] MEDS: Albuterol 2.5 MG/3 ML VIAL.NEB. INHALATION (13:25)
[2020-08-28 13:27] LABS: Procalcitonin 0.25 ng/mL (0.00-0.09)
[2020-08-28] MEDS: 0.9% Normal Saline 1,000 ML 200 ML IV (13:30)
[2020-08-28] MEDS: Heparin Injection (Vial) 5,000 UNIT/ML VIAL 4500 UNIT IV (13:33)
[2020-08-28] MEDS: HEPARIN/D5w 25,000 UNITS 25,000 UNITS/250 ML IV.SOLN. 10 UNITS IV (13:38)
[2020-08-28 13:39] LABS: Partial Thromboplast Time 30.7 Seconds (24.1-36.2)
[2020-08-28] MEDS: Calcium Chloride 1 GM/10 ML Syringe IV ×2 (13:46→18:46)
[2020-08-28] MEDS: levoFLOXacin IV 500 MG/100 ML BAG 100 MG IV (13:50)
[2020-08-28] MEDS: metroNIDAZOLE 500 MG/100 ML BAG 100 MG IV (13:52)
[2020-08-28] MEDS: Sodium Polystyrene Sulfonate 15 GM/60 ML UDC 30 GM PO (13:57)
[2020-08-28] MEDS: dilTIAZem 25 MG/5 ML Vial 10 MG IV BOLUS (14:35)
[2020-08-28] MEDS: Chlorhexidine 15 ML PO (16:00)
--- NOTE | 2020-08-28 16:09 | HP.PCM_ITS ---
History of Present Illness Date of Admission: 08/28/20 Chief Complaint: Shortness of breath The patient is a 80 year old F with a PMH as below who presents to the hospital from snf with respiratory failure. By the time of my evaluation she was already intubated and sedated therefore the history was obtained from chart review. Per the snf report she had tested positive for Covid recently, about a week. She had some shortness of breath and neck issues transferring the hospital. She was intubated down in the ER due to her respirations, she was brought in by EMS and was 100% on nonrebreather at 15 L/min. Prior to her transfer upstairs to the ICU from the ER she also developed A. fib with RVR and was given a dose of Cardizem in the ED however because of hypotension she also to be started on Levophed. After the intubation but prior to the insertion of the central line a CODE BLUE was called and she was felt to be in PEA so compressions were initiated and after a round of CPR the ED physician performed an ultrasound of the heart which did demonstrate contractility therefore he continued to place a central line. She was also found to be hyperkalemic to 6.8 and she was given medications for this by the ED physician. She was found to have acute renal failure with a creatinine of 2.3 and a baseline of around 1.2. She was transferred to the ICU in guarded condition. Past Medical History Past Medical History (Chronic Problems): Chronic Problems Pulmonary HTN (Chronic) Osteoporosis (Chronic) Type II diabetes mellitus, uncontrolled (Chronic) CAD (coronary artery disease) (Chronic) Chronic pain syndrome (Chronic) Coronary atherosclerosis of viejas coronary artery (Chronic) Chronic respiratory failure (Chronic) Diastolic dysfunction (Chronic) Left ventricular hypertrophy (Chronic) Left atrial enlargement (Chronic) Risk for falls (Chronic) Chronic obstructive asthma with acute exacerbation (Chronic) Left shoulder pain (Chronic) Lethargy (Chronic) Type 2 diabetes mellitus (Chronic) COPD (chronic obstructive pulmonary disease) (Chronic) Transient cerebral ischemia (Chronic) Rheumatoid arthritis (Chronic) Benign essential HTN (Chronic) Allergies aspirin Allergy (Verified 10/10/15 20:45) Hives Penicillins Allergy (Verified 10/10/15 20:45) Hives Sulfa (Sulfonamide Antibiotics) Allergy (Verified 10/10/15 20:45) Hives Home Medications: Ambulatory Orders Medication Instructions Recorded Acetaminophen [Tylenol] 650 mg PO Q4H PRN PRN 06/05/16 Albuterol Aerosols [Ventolin 2.5 mg INHALATION Q4H PRN PRN 06/05/16 Aerosols] Carbamide Peroxide [Ear Wax 3 drop OT QHS PRN 06/05/16 Removal] Clopidogrel Bisulfate [Plavix] 75 mg PO DAILY 06/05/16 Duloxetine HCl 60 mg PO DAILY 06/05/16 Furosemide [Lasix] 40 mg PO BID 06/05/16 Hydroxychloroquine [Plaquenil] 200 mg PO DAILYCM 06/05/16 Insulin Aspart [Novolog Flexpen] 0 units SC BID 06/05/16 Insulin Detemir [Levemir FlexPen] 25 units SC QHS 06/05/16 Ipratropium/Albuterol Sulfate 3 ml INHALATION TID 06/05/16 [Duoneb] Lisinopril [Zestril] 40 mg PO DAILY 06/05/16 Memantine HCl [Namenda] 10 mg PO BID 06/05/16 Methotrexate 12.5 mg PO WE 06/05/16 Omeprazole [Prilosec] 20 mg PO DAILY 06/05/16 Senexon-S 1 tab PO BID 06/05/16 predniSONE tablet 10 mg PO DAILY 06/05/16 Oxycodone HCl [Oxycontin] 30 mg PO BID #14 tab.er.12h 06/09/16 Oxycodone [Oxyir] 5 mg PO Q4H PRN PRN #20 tablet 06/09/16 Insulin Aspart [Novolog Flexpen 10 units SC BID 06/27/18 ([facility])] Potassium Chloride 20 meq PO DAILY 06/27/18 Atorvastatin Calcium 10 mg PO DAILY 12/12/18 Folic Acid 1 mg PO DAILY 12/12/18 Guaifenesin [Mucinex] 600 mg PO BID 12/12/18 Melatonin 1 mg PO QHS 12/12/18 Oseltamivir Phosphate [Tamiflu] 75 mg PO DAILY 12/12/18 Methadone HCl [Dolophine] 2.5 mg PO BID 08/28/20 Pantoprazole Sodium [Protonix] 20 mg PO DAILY 08/28/20 busPIRone [Buspar] 10 mg PO DAILY 08/28/20 Surgical History: noncontributory Psychiatric History: - - Alzheimer's dementia CATERING ADMINISTRATIVE ASSISTANT History: No pertinent CATERING ADMINISTRATIVE ASSISTANT history Lives: Skilled Nursing Smoking Status: Unknown if ever smoked Drugs: None - *Family History Maternal History Items: No pertinent history Paternal History Items: No pertinent history Review of Systems Unable to obtain accurate/complete ROS d/t: Intubation and sedation VTE Information - Inpt Only VTE Present on Admission: No Patient Problems: Active and Suspected Problems COVID-19 (Acute) Respiratory failure (Acute) Hyperkalemia (Acute) Septic shock (Acute) Elevated troponin (Acute) New onset atrial fibrillation (Acute) - Physical Exam Vitals/I&O's: Vital Signs Temp Pulse Resp BP Pulse Ox 99 F 151 H 12 67/51 L 100 08/28/20 14:51 08/28/20 14:51 08/28/20 14:51 08/28/20 14:51 08/28/20 14:20 Oxygen Flow Rate (L/min) 50 Oxygen Delivery Method Mechanical Ventilator Weight: 149 lb 0.52 oz Body Mass Index (BMI) 24.0 Finger Stick Blood Glucose 110 Intake and Output for Last 24 Hours 08/26/20 08/27/20 08/28/20 23:59 23:59 23:59 Intake Total 1026.64 / 1026.64 Balance 1026.64 / 1026.64 General: - - Intubated and sedated HEENT: Atraumatic, PERRLA, Normocephalic Oral: Dry Mucosa Neck: Supple, No JVD Lungs: Normal air movement, Diminished, Rhonchi Cardiovascular: Normal S1, Normal S2, No murmurs, Irregular Rate Abdomen: Soft, Non-Distended, No Hepato-splenomegaly Extremities: No edema, Capillary Refill Less than 3 Seconds Skin: No rashes, No breakdown Neurological: - - Intubated and sedated Psych/Mental Status: - - Intubated and sedated Microbiology Past 72 Hours 08/28/20 12:41 Mucosa - Nose SARS-CoV-2 Antigen (Rapid) - Final SARS-CoV-2 (COVID 19) Laboratory Results 08/28/20 11:37: Fibrinogen 688 H 08/28/20 11:37: B-Natriuretic Peptide Cancelled 08/28/20 11:37: Procalcitonin Cancelled 08/28/20 11:37: WBC 11.5 H, RBC 4.16 L, Hgb 13.0, Hct 42.6, MCV 102.4 H, MCH 31.3, MCHC 30.5 L, RDW Std Deviation 53.5 H, RDW Coeff of Nayana 14.2, Plt Count 404, MPV 11.4, Immature Gran % (Auto) 1.000 H, Neut % (Auto) 85.8 H, Lymph % (Auto) 8.4 L, Laporte % (Auto) 4.4, Eos % (Auto) 0.1, Baso % (Auto) 0.3, Absolute Neuts (auto) 9.9 H, Absolute Lymphs (auto) 0.97, Nucleated RBC % 0 08/28/20 11:37: APTT 30.7 08/28/20 12:05: Lactic Acid 1.6 08/28/20 12:05: Procalcitonin 0.25 H 08/28/20 12:05: B-Natriuretic Peptide 73.2 08/28/20 12:05: Sodium 143, Potassium 6.8 H*, Chloride 105, Carbon Dioxide 36.0 H, Anion Gap 2 L, BUN 78 H, Creatinine 2.30 H, Estim Creat Clear Calc 17.65, Est GFR (MDRD) Af Amer 26 L, Est GFR (MDRD) Non-Af 22 L, BUN/Creatinine Ratio 33.9 H, Glucose 187 H, Calcium 8.6, Total Bilirubin 0.30, AST 24, ALT 19, Alkaline Phosphatase 84, Lactate Dehydrogenase 302 H, Total Creatine Kinase 125, Troponin I 0.185 H, C-React Prot Ext Range 163.00 H, Total Protein 6.7, Albumin 2.4 L, Globulin 4.3 H, Albumin/Globulin Ratio 0.6 L 08/28/20 13:13: Specimen Type ART, Sample Site R Brach, pH 7.41, Bicarbonate Actual 31.7 H, Total CO2 33, Base Excess 7 H, O2 Saturation 100 H, O2 % 75, ABG pCO2 50.3 H, ABG pO2 248 H, Juan Test Positive, Respiration Rate 12, O2 Delivery Device Adult Vent, Vent Mode AC, Tidal Volume 450, POC PEEP 5 Current Medications Acetaminophen (Acetaminophen 650 Mg Suppository) 650 mg RECTAL Q4H PRN PRN PRN Reason: Pain Score 1-10/Temp > 100.7 F Chlorhexidine Gluconate (Chlorhexidine 15 Ml) 15 ml PO BID RACHELLE Famotidine (Famotidine 20 Mg Tablet) 20 mg GT BID RACHELLE Heparin Sodium (Porcine) (Heparin Injection (Vial) 5,000 Unit/Ml Vial) 0 unit IV UD PRN; Protocol PRN Reason: dose adjustment Propofol (Diprivan) 1,000 mg in 100 mls @ 4.056 mls/hr CONT INF .Q12H RACHELLE; Protocol Last Admin: 08/28/20 12:53 Dose: 10 mcg/kg/min, 4.1 mls/hr Documented by: Heparin Sodium/Dextrose () 25,000 units in 250 mls @ 10 mls/hr IV .Q25H RACHELLE; Protocol Last Admin: 08/28/20 13:38 Dose: 1,000 units/hr, 10 mls/hr Documented by: Sodium Chloride () 1,000 mls @ 100 mls/hr IV .Q10H RACHELLE Fentanyl Citrate 1,000 mcg/ (Sodium Chloride) 100 mls @ 2.5 mls/hr CONT INF .Q40H RACHELLE; Protocol Norepinephrine Bitartrate 8 mg (/ Sodium Chloride) 250 mls @ 9.375 mls/hr CONT INF .[id number] RACHELLE; Protocol Amiodarone HCl 360 mg/ (Dextrose) 200 mls @ 33.333 mls/hr CONT INF .Q6H RACHELLE Stop: 08/28/20 21:59 Amiodarone HCl 360 mg/ (Dextrose) 200 mls @ 16.667 mls/hr CONT INF .Q12H RACHELLE Stop: 08/29/20 15:59 Assessment/Plan All Active Problems COVID-19 (Acute) Respiratory failure (Acute) Hyperkalemia (Acute) Septic shock (Acute) Elevated troponin (Acute) New onset atrial fibrillation (Acute) Hyponatremia (Acute) Sepsis (Acute) Dehydration (Acute) Cystitis (Acute) Acute kidney injury (Acute) Mental status change (Acute) Hypoglycemia (Acute) 1. Acute hypoxic respiratory failure secondary to COVID-19 pneumonia/COPD/chronic respiratory failure/hyperkalemia/acute renal failure -She was diagnosed at the snf with Covid about a week ago per the family -She is progressively gotten more short of breath -She was intubated in the ED to protect her airway -Can proceed with Decadron and remdesivir and can discuss the case with ID or ICU about convalescent plasma given her significant illness -Can continue with mariluz hector -She was given Kayexalate, calcium gluconate, in the ED to treat her hyperkalemia. Will monitor -Baseline creatinine is around 1.2, her creatinine today on admission was 2.3. We will provide her IV fluids and continue to monitor 2. A. fib with RVR/chronic diastolic CHF/HTN/HLD/pulmonary hypertension/coronary artery disease/cardiac arrest status post successful resuscitation -She was given 10 mg of Cardizem in the ED, and this dropped her pressure so she was also started on Levophed, will continue on admission -Despite her diastolic dysfunction, will provide her with some fluid given her hypotension -We will likely need to discontinue Cardizem and place her on amiodarone -Her last echo was in 2014 in our system with an EF of 65% and an RVSP of 30 mmHg. She has stage I diastolic dysfunction at that time -Can continue with aspirin, Plavix, Lipitor but will hold her Lasix 3. IDDM 2 -Can continue with her home insulin regimen -Accu-Cheks AC at bedtime 4. Depression/anxiety/dementia -Continue with her home BuSpar, Cymbalta, Namenda -Family felt that her mental health be stable 5. GERD -Stable -Continue PPI 6. RA/chronic pain -Stable -We will hold her methotrexate while admitted, could continue with her Plaquenil -Since she will be on a fentanyl drip while intubated, will also discontinue her OxyContin, oxycodone, and methadone DVT: Heparin Inpatient E&M: 65211 Init Hosp L3
[2020-08-28] MEDS: 0.9% Normal Saline 1,000 ML 100 ML IV (16:13)
[2020-08-28] MEDS: Amiodarone 360 MG in Dextrose 5% Viaflo Bag 192.8 ML 33.3 MG CONT INF (17:45)
[2020-08-28] MEDS: Adenosine 6 MG/2 ML Syringe 12 MG IV (18:00)
[2020-08-28] MEDS: Etomidate 20 MG/10 ML Vial 6 MG IV (18:13)
[2020-08-28] MEDS: Dextrose 50%-Water 25 GM/50 ML DISP.SYRIN IV (18:44)
[2020-08-28] MEDS: Insulin Lispro 100 UNIT/ML INSULN.PEN 10 UNIT SC (18:45)
[2020-08-28] MEDS: Sodium Bicarbonate 8.4% 50 ML Syringe 50 MEQ IV (18:51)
[2020-08-28] MEDS: LORazepam 2 MG/ML Syringe IV (19:15)
[2020-08-28] MEDS: Morphine 4 MG/ML Syringe IV (19:20)
--- NOTE | 2020-08-28 19:30 | CPS ---
PT EXTUBATED FOR TERMINAL WEAN PER DR. ROSALES AT 1930 ON 08/28/20
--- NOTE | 2020-08-28 20:31 | NURSING ---
Patient arrived from ED in Afib. Restraints on. HR 140-150's, BP 38/19. Heparin gtt, Levo gtt at 10, 0.9NS bolus running. Primary RN at bedside at all times. Med gtt titrated according to MD orders and vitals. See MAR for all med orders and titrations. 18:00: 12Adenosine admin by MD with RNs at bedside. No change in patient status. 18:14 200j delivered by RN with MD and primary RN present at bedside. HR 99 at 18:15 down from HR169 at 18:10. See MAR for one time med orders. See vitals charting for patient status change. Family updated via phone by RN. 3 Family members present at bedside at 19:00. MD at bedside. See new MD orders. Hand off report given at bedside to night shift manager RN.
--- NOTE | 2020-08-28 20:53 | PCM.PN.BLA ---
Progress Note I was notified by nursing staff that she was significantly tachycardic. I evaluated her and given her hypotension and her tachycardia I recommended that we increase the Levophed dosage and place her on a Precedex drip instead of propofol. And once her blood pressures will be more stable could likely initiate amiodarone to slow it down secondary to her A. fib with RVR noted in the ER. However, her heart rate continued to climb and her blood pressure did not really respond to the fluid bolus or the Levophed therefore the decision was made that this was an emergent situation and she was cardioverted while on a heparin drip. She was given 6 mg of etomidate and had a synchronized cardioversion at 200 J. She responded to normal sinus rhythm at around 90 bpm for about 10 minutes. Prior to this she had been given a 12 mg dose of adenosine which did not adjust her heart rate at all. Her amiodarone was discontinued as her blood pressure continued to be severely hypotensive despite IV fluids and Levophed being turned up to 25 mcg/min. She continued to maintain mean arterial pressures in the 40s however by this time family had arrived. I had an extensive discussion with them for over 20 minutes on advanced care planning and the current situation with to their mother/grandmother. At that time they elected to proceed with hospice and terminal extubation. Karie was terminally extubated at 1918. At that time she was made hospice and prior to extubation she was given 2 mg of Ativan and 4 mg of IV morphine. Nursing staff was given a order for a milligram of Ativan every hour as needed agitation and restlessness as well as morphine 4 mg IV every hour as needed for dyspnea. Critical care time: 60 minutes was spent at patient bedside coordinating care and discussing with family. STROKE Vital Signs/Narrative: Vital Signs Temp Pulse Resp BP BP Pulse Ox 08/28/20 18:45 103 H 14 124/24 H 90 08/28/20 18:30 96 12 36/21 L 91 08/28/20 18:15 115 H 15 115/45 L 100 08/28/20 18:13 103 H 08/28/20 18:00 38.9 F L 174 H 20 H 98/57 L 98/57 L 88 08/28/20 17:46 170 H 16 91/66 94 08/28/20 17:45 158 H 21 H 91/66 08/28/20 17:30 158 H 21 H 60/37 L 08/28/20 17:15 160 H 22 H 64/44 L 08/28/20 17:14 180 H 29 H 08/28/20 17:00 38.3 F L 166 H 19 H 73/27 L 100 Procedures: [id number] Critial Care 1st Hr
[2020-08-28] MEDS: Atropine Sulfate 1% 2 ml Bottle 4 DRP PO (21:26)
--- NOTE | 2020-08-28 21:40 | NURSING ---
Family remained at bedside until pt expiration at 21:30. Nursing shoe repair supervisor aware, Dr. Mendez naranjo, Manager Quality aware, [employer], and home have been contacted.
--- NOTE | 2020-08-29 16:57 | PCM.DEATH ---
Preliminary Cause of Septic shock and respiratory failure Date of Admission: 08/28/20 Date of : 08/28/20 - Principle Diagnosis Septic shock with acute hypoxic respiratory failure COVID-19 pneumonia A. fib with RVR Hyperkalemia Coronary artery disease Problem List: Active and Suspected Problems COVID-19 (Acute) Respiratory failure (Acute) Hyperkalemia (Acute) Septic shock (Acute) Elevated troponin (Acute) New onset atrial fibrillation (Acute) Hospital Course Mrs. Lund is an 80-year-old female who was transferred in from the [place] [facility] for shortness of breath and hypoxia. Per report from the [place] [facility] she was only requiring 2 L nasal cannula however when she arrived she was on 15 L nonrebreather and agonal he breathing. She was intubated in the ED and after intubation she coded and after round of CPR was found to have cardiac activity on ultrasound. She has central line placed and was started on Levophed which then threw her into A. fib with RVR she was given a dose of Cardizem 10 mg which dropped her pressure. When she presented upstairs to the ICU we had to discontinue her propofol and try to switch her to Precedex because of her hypotension. We also gave her a dose of 12 mg of adenosine which did not affect her A. fib with RVR and so she was cardioverted and returned to normal sinus rhythm for about 10 to 15 minutes. She was restarted on some amiodarone to see if we could control her rhythm after cardioversion however her blood pressure is became very tenuous and her Levophed was increased to 25 mcg/min. He was also noted to have some peaked T waves and even though her hypercalcemia was treated in the ED we treated it again with calcium chloride and insulin and glucose. At that point family was notified because her mean arterial pressure at that time was 37, and they presented to the hospital and after a long discussion about what is going on and what had happened family elected to proceed with terminal extubation and hospice. She was extubated at 1917 and at 2129 on 08/28/2020. Inpatient E&M: [id number] [facility]
== END 2020-08-28 22:35 | DRG 871 ==
LOC: ED 13:27 → ICU 15:21
PROVIDERS: Admitting Provider Family Medicine; Emergency Provider Emergency Medicine; PCP Family Medicine; Visit Provider Family Medicine
DX: A41.89 Other specified sepsis (principal); U07.1 COVID-19; R65.21 Severe sepsis with septic shock; J96.21 Acute and chronic respiratory failure with hypoxia; J12.89 Other viral pneumonia; J44.0 Chronic obstructive pulmonary disease with (acute) lower respiratory infection; I50.32 Chronic diastolic (congestive) heart failure; N17.9 Acute kidney failure, unspecified; I25.10 Atherosclerotic heart disease of native coronary artery without angina pectoris; E87.5 Hyperkalemia; I48.91 Unspecified atrial fibrillation; M06.9 Rheumatoid arthritis, unspecified; G30.9 Alzheimer's disease, unspecified; I27.20 Pulmonary hypertension, unspecified; G89.4 Chronic pain syndrome; E11.65 Type 2 diabetes mellitus with hyperglycemia; M81.0 Age-related osteoporosis without current pathological fracture; I11.0 Hypertensive heart disease with heart failure; E78.5 Hyperlipidemia, unspecified; K21.9 Gastro-esophageal reflux disease without esophagitis; F32.9 Major depressive disorder, single episode, unspecified; F41.9 Anxiety disorder, unspecified
CPT/HCPCS: 31500; 31720; 36556; 36600; 51702; 71045; 74018; 80053; 82550; 82803; 83605; 83615; 83880; 84145; 84484; 85025; 85384; 85730; 86140; 87040; 87426; 92950; 93005; 94002; 94640; 99251; 99285; J7030; J7050; A4216; G0463; J0153; J0330; J3010